=== PATIENT | female | born 1965 | race Caucasian/White ===

== ENCOUNTER 2018-06-05 08:08 | Day surgery (SDC) | payer OTHER ==
[~2018-06-05 08:08] MED LIST: ACETAMINOPHEN 1,000 MG/100 ML BTL IV ONE; FAMOTIDINE 20MG TABLET PO ONE; MECLIZINE 25 MG TABLET PO ONE; METOCLOPRAMIDE 10 MG TABLET PO ONE
[2018-06-05] MEDS ORDERED: MIDAZOLAM HCL 2MG/2ML VIAL IV ONE (08:09)
[2018-06-05] MEDS ORDERED: ONDANSETRON HCL IV 4 MG/2 ML VIAL IVP ONE (08:09)
[2018-06-05] MEDS ORDERED: SEVOFLURANE 250 ML INH ONE (08:09)
[2018-06-05] MEDS ORDERED: BUPIVACAINE 0.25% W/EPI MPF 30ML VIAL IVP ONE (08:09)
[2018-06-05] MEDS ORDERED: KETOROLAC 30 MG/ML VIAL IVP ONE (08:09)
[2018-06-05] MEDS ORDERED: FENTANYL PF 100MCG/2ML VIAL IV ONE (08:09)
[2018-06-05] MEDS ORDERED: LIDOCAINE 2% MDV (20MG/ML) 20ML VIAL IV ONE (08:09)
[2018-06-05] MEDS ORDERED: PROPOFOL 10 MG/ML VIAL IV ONE (08:09)
--- NOTE | 2018-06-06 08:30 | Operative Note ---
DATE OF SURGERY: 06/05/2018 Surgeon: Quinton Kim DO PREOPERATIVE DIAGNOSES: 1. Torn lateral meniscus of the right knee. 2. Chondromalacia of the right knee. POSTOPERATIVE DIAGNOSES: 1. Torn lateral meniscus of the right knee. 2. Chondromalacia of the medial femoral condyle, trochlea, and patella of right knee. 3. Synovitis, right knee. OPERATION: 1. Arthroscopic partial lateral meniscectomy, right knee. 2. Arthroscopic chondroplasty of the medial femoral condyle and patella, right knee. 3. Arthroscopic partial synovectomy, right knee. DESCRIPTION OF PROCEDURE: This 53-year-old female was taken to the operating room and placed in the supine position on the operating room table where general anesthesia was induced. The right lower extremity was elevated, exsanguinated, and the tourniquet inflated to 300 mmHg. Arthroscopic knee stephenson applied. Right knee prepped with Hibiclens and draped in the usual sterile fashion. An inferolateral portal was established for the 4 mm arthroscope, and initial evaluation of the joint demonstrated chondromalacia of the patella grade 2 with fragmentation of the articular cartilage which was resected with a rotating shaver. The entire trochlea demonstrated grade 3 changes but no instability of that articular cartilage was evident. The medial gutter was examined and osteophytes were present there. The medial compartment there was at least 50% of the articular cartilage of the weightbearing surface was delaminated and approximately grade 3. The medial meniscus was probed throughout its entirety and found to be stable. Some minor fragmentation of the medial femoral condyle articular cartilage was present, and chondroplasty was performed there. The intracondylar notch was examined and found to be normal. The lateral compartment was entered, and a complex tear of the lateral meniscus was present. The apex of the tear being at approximately the 9:30 to 10 o'clock position which involved 50% of the depth of the meniscus right at the juncture between the posterior horn and the body. This was resected with a rotating shaver and smoothed, trimmed, and balanced. Re-probed and confirmed to be stable. The joint was then copiously irrigated. There was also evidence of grade 3 chondromalacia of the lateral tibial plateau but it was not unstable and it was not further disturbed. The joint was then irrigated and suctioned. The instruments were removed. The portals infiltrated with 0.25% Marcaine with epinephrine. Sterile dressings applied. Tourniquet and knee stephenson released and the patient taken to the recovery room in satisfactory condition. GROSS PATHOLOGY: Advanced degenerative changes were present in the knee with severe grade 3 changes noted on the lateral tibial plateau. A complex tear of the lateral meniscus as described. In addition, 50% articular cartilage loss noted in the medial compartment grade 3 and grade 3 changes noted on the trochlea and grade 2 changes noted in the patella. CC: DO RICK Spencer
== END 2018-06-05 10:00 | disposition home or self-care (01) ==
LOC: SUR 08:08
PROVIDERS: ATTEND Orthopaedic Surgery
DX: S83.271A Complex tear of lateral meniscus, current injury, right knee, initial encounter (principal); M65.861 Other synovitis and tenosynovitis, right lower leg; M22.41 Chondromalacia patellae, right knee; I10 Essential (primary) hypertension; J45.909 Unspecified asthma, uncomplicated; K21.9 Gastro-esophageal reflux disease without esophagitis
CPT/HCPCS: J1885; J2405